=== PATIENT | female | born 1995 | race Caucasian/White ===

== ENCOUNTER → 2018-06-16 | Outpatient (CLI) | payer OTHER | END | disposition home or self-care (01) | LOC: LAB SHORT 18:04 → LAB 18:04 | DX: L08.9 Local infection of the skin and subcutaneous tissue, unspecified (principal) | CPT/HCPCS: 87070; 87205 ==

== ENCOUNTER → 2019-02-24 | Outpatient (CLI) | payer OTHER ==
[~2019-02-24] MED LIST: ALBU90OI INH; ALLEGRA ALLERG180 MG PO; MONO-LINYAH1 EACH PO; SERT100 PO
[2019-02-24 18:26] LABS: Candida species (DNA Probe) Negative (NEGATIVE); G. vaginalis (DNA Probe) Negative (NEGATIVE); T. vaginalis (DNA Probe) Negative (NEGATIVE)
== END ==
LOC: LAB SHORT 16:00 → LAB 16:00
PROVIDERS: Nurse Practitioner
DX: R10.2 Pelvic and perineal pain (principal)
CPT/HCPCS: 87480; 87510; 87660

== ENCOUNTER 2019-12-17 09:55 | Emergency (ER) | payer OTHER ==
[~2019-12-17] VITALS: Ht 160 cm; Wt 68.0 kg
[2019-12-17 11:34] LABS: BASOPHILS ABSOLUTE AUTO 0.08 K/mm3 (0.00-0.23); BASOPHILS PERCENT AUTO 1 % (0-2); EOSINOPHILS ABSOLUTE AUTO 0.28 K/mm3 (0.00-0.68); EOSINOPHILS PERCENT AUTO 3 % (0-6); Hemoglobin 13.8 g/dL (11.5-16.0); IMMATURE GRAN ABSOLUTE AUTO 0.03 K/mm3 (0.00-0.10); IMMATURE GRAN PERCENT AUTO 0 % (0-1); LYMPHOCYTES ABSOLUTE AUTO 2.07 K/mm3 (0.84-5.20); LYMPHOCYTES PERCENT AUTO 22 % (21-46); MONOCYTES ABSOLUTE AUTO 0.76 K/mm3 (0.16-1.47); MONOCYTES PERCENT AUTO 8 % (4-13); Mean Corpuscular HGB 29.2 pg (26.0-34.0); Mean Corpuscular HGB Conc 32.9 g/dL (31.5-36.5); Mean Corpuscular Volume 89 fL (80-100); Mean Platelet Volume 10.4 fL (9.1-12.4); NEUTROPHILS PERCENT AUTO 66 % (41-73); Platelet Count 272 K/mm3 (150-400); RDW Coefficient Variation 12.1 % (11.7-14.2); RDW Standard Deviation 39.9 fL (35.1-46.3); Red Blood Cell Count 4.72 M/mm3 (3.80-5.20); White Blood Cell Count 9.52 K/mm3 (4.00-11.30)
[2019-12-17 11:58] LABS: Alanine Aminotransfer (ALT/SGP 22 U/L (12-78); Albumin, Blood 3.5 g/dL (3.4-5.0); Albumin/Globulin Ratio 0.9 (0.8-1.8); Alk Phos 99 U/L (50-136); Anion Gap 5 mmol/L (6-16); Aspartate Aminotrans (AST/SGOT 19 U/L (12-37); Bilirubin, Total 0.4 mg/dL (0.1-1.0); Blood Urea Nitrogen 6 mg/dL (8-24); Bun/Creatinine Ratio 12.2 (12.0-20.0); CO2, Blood 29 mmol/L (21-32); Calcium, Blood 9.3 mg/dL (8.5-10.1); Chloride, Blood 107 mmol/L (98-108); Creatinine, Blood 0.49 mg/dL (0.40-1.00); Globulin, Blood 3.7 g/dL (2.2-4.0); Glomerular Filtration Rate >60 (60-); Glucose, Blood 81 mg/dL (70-99); Potassium, Blood 3.7 mmol/L (3.5-5.5); Sodium, Blood 141 mmol/L (136-145); Total Protein, Blood 7.2 g/dL (6.4-8.2)
[2019-12-17 13:26] LABS: U Amphetamine Screen Not Detected; U Barbituate Screen Not Detected; U Methamphetamine Screen Not Detected
[2019-12-17 13:27] LABS: U Benzodiazapine Screen Not Detected; U Buprenorphine Screen Not Detected; U Cannabinoids Screen Not Detected; U Cocaine Screen Not Detected; U Methadone Screen Not Detected; U Opiates Screen Not Detected; U Oxycodone Screen Not Detected; U Phencyclidine Screen Not Detected; U Propoxyphene Screen Not Detected
[2019-12-17 13:34] LABS: Free Thyroxine 1.29 ng/dL (0.70-1.60); Thyroid Stimulating Hormone 1.28 uIU/mL (0.360-4.800)
[2019-12-17 15:32] LABS: International Normalized Ratio 1.05; Prothrombin Time Results 11.2 Sec (9.7-11.5)
== END 2019-12-17 17:23 | disposition short-term general hospital (02) ==
LOC: ER 09:55
PROVIDERS: Physician Assistant
DX: I63.9 Cerebral infarction, unspecified (principal); H53.8 Other visual disturbances; Z20.828 Contact with and (suspected) exposure to other viral communicable diseases; F32.9 Major depressive disorder, single episode, unspecified; Z88.5 Allergy status to narcotic agent; Z91.02 Food additives allergy status; Z79.899 Other long term (current) drug therapy
CPT/HCPCS: 36415; 70450; 70551; 80053; 81000; 81025; 84439; 84443; 85025; 85610; 99284-25; U0004

== ENCOUNTER → 2021-03-26 | Outpatient (CLI) | payer OTHER | END | disposition home or self-care (01) | LOC: LAB SHORT 16:06 → LAB 16:06 | DX: N39.0 Urinary tract infection, site not specified (principal) | CPT/HCPCS: 87086 ==

== ENCOUNTER → 2021-07-16 | Outpatient (CLI) | payer OTHER | END | disposition home or self-care (01) | LOC: LAB SHORT 17:06 | DX: R30.9 Painful micturition, unspecified (principal) | CPT/HCPCS: 87086 ==

== ENCOUNTER → 2021-08-01 | Outpatient (CLI) | payer OTHER ==
[2021-08-01 11:31] LABS: Source, Urine Clean Catch
[2021-08-01 15:12] LABS: Appearance, Urine Clear (Clear); Bilirubin, Urine Neg (Neg); Blood, Urine Neg (Neg); Color, Urine Yellow (P-Yellow); Glucose Qualitative, Urine Neg (Neg); Ketones, Urine Neg (Neg); Leukocyte Esterase, Urine 1+ (Neg); Nitrite, Urine Neg (Neg); Protein, Urine Neg (Neg); Specific Gravity, Urine 1.015 (1.003-1.022); Urobilinogen, Urine NORM (Normal)
[2021-08-01 15:26] LABS: Bacteria Mod /hpf; Red Blood Cells, Urine 0-2 /hpf (0-2); Squamous Epithelial Cells Few /hpf (Few)
== END ==
LOC: LAB SHORT 11:30 → LAB 11:30
PROVIDERS: Registered Nurse Community Health
DX: O09.91 Supervision of high risk pregnancy, unspecified, first trimester (principal)
CPT/HCPCS: 81001; 87086

== ENCOUNTER → 2021-08-22 | Outpatient (CLI) | payer OTHER ==
[~2021-08-22] MED LIST changes: +ADALAT CC30 M1 PO; +CETI5 PO; +ENOX30I; +Hydroxyzine HCl25 MG PO; +PRENATAL TABLE1 EAC9; +Zofran4 MG PO
[2021-08-24 01:06] LABS: CHLAMYDIA TRACHOMATIS, NAA Negative (Negative)
== END | disposition home or self-care (01) ==
LOC: LAB SHORT 14:00 → LAB 14:00
PROVIDERS: Family Medicine
DX: Z34.90 Encounter for supervision of normal pregnancy, unspecified, unspecified trimester (principal)
CPT/HCPCS: 87491; 87591

== ENCOUNTER → 2021-09-02 | Outpatient (CLI) | payer OTHER ==
[~2021-09-02] MED LIST changes: -ADALAT CC30 M1 PO; -CETI5 PO; -ENOX30I; -Hydroxyzine HCl25 MG PO; -PRENATAL TABLE1 EAC9; -Zofran4 MG PO
[2021-09-02 15:47] LABS: BASOPHILS ABSOLUTE AUTO 0.04 K/mm3 (0.00-0.23); BASOPHILS PERCENT AUTO 1 % (0-2); EOSINOPHILS ABSOLUTE AUTO 0.11 K/mm3 (0.00-0.68); EOSINOPHILS PERCENT AUTO 1 % (0-6); Hematocrit 39.4 % (33.0-51.0); Hemoglobin 13.4 g/dL (11.5-16.0); IMMATURE GRAN ABSOLUTE AUTO 0.03 K/mm3 (0.00-0.10); IMMATURE GRAN PERCENT AUTO 0 % (0-1); LYMPHOCYTES ABSOLUTE AUTO 1.93 K/mm3 (0.84-5.20); LYMPHOCYTES PERCENT AUTO 24 % (21-46); MONOCYTES ABSOLUTE AUTO 0.61 K/mm3 (0.16-1.47); MONOCYTES PERCENT AUTO 8 % (4-13); Mean Corpuscular HGB 29.3 pg (26.0-34.0); Mean Corpuscular Volume 86 fL (80-100); Mean Platelet Volume 10.4 fL (9.1-12.4); NEUTROPHILS ABSOLUTE AUTO 5.37 K/mm3 (1.96-9.15); NEUTROPHILS PERCENT AUTO 66 % (41-73); Platelet Count 270 K/mm3 (150-400); RDW Coefficient Variation 12.9 % (11.7-14.2); RDW Standard Deviation 40.2 fL (35.1-46.3); Red Blood Cell Count 4.57 M/mm3 (3.80-5.20); White Blood Cell Count 8.09 K/mm3 (4.00-11.30)
[2021-09-02 15:50] LABS: Albumin, Blood 3.4 g/dL (3.4-5.0); Bilirubin, Total 0.3 mg/dL (0.1-1.0); Bun/Creatinine Ratio 18.1 (12.0-20.0); Calcium, Blood 9.3 mg/dL (8.5-10.1); Creatinine, Blood 0.39 mg/dL (0.40-1.00); Globulin, Blood 3.5 g/dL (2.2-4.0); Potassium, Blood 3.4 mmol/L (3.5-5.5); Total Protein, Blood 6.9 g/dL (6.4-8.2)
== END | disposition home or self-care (01) ==
LOC: LAB SHORT 14:20 → LAB 14:20
PROVIDERS: Nurse Practitioner Family
DX: R11.0 Nausea (principal); R53.83 Other fatigue
CPT/HCPCS: 80053; 85025

== ENCOUNTER 2021-09-29 04:01 | Day surgery (SDC) | payer OTHER ==
[2021-09-29] MEDS ORDERED: ENOX30I (14:05)
[2021-09-29] MEDS ORDERED: Hydroxyzine HCl25 MG PO (14:06)
[2021-09-29] MEDS ORDERED: Zofran4 MG PO (14:07)
[2021-09-29] MEDS ORDERED: PRENATAL TABLE1 EAC9 (14:07)
[2021-09-29] MEDS ORDERED: CETI5 PO (14:08)
--- NOTE | 2021-09-29 16:23 | NUR ---
IVF STOPPED AND PT DISCHARGED HOME BY LUIS BARNES RN
== END 2021-09-29 15:15 | disposition home or self-care (01) ==
LOC: ATC 04:01
DX: O21.9 Vomiting of pregnancy, unspecified (principal); Z3A.00 Weeks of gestation of pregnancy not specified; Z79.899 Other long term (current) drug therapy
CPT/HCPCS: 96361; 96374; J2405; J7120

== ENCOUNTER 2021-10-01 00:46 | Day surgery (SDC) | payer OTHER ==
[~2021-10-01 00:46] MED LIST changes: +CETI5 PO; +ENOX30I; +Hydroxyzine HCl25 MG PO; +PRENATAL TABLE1 EAC9; +Zofran4 MG PO
== END 2021-10-01 16:28 | disposition home or self-care (01) ==
LOC: ATC 00:46
DX: R11.2 Nausea with vomiting, unspecified (principal)
CPT/HCPCS: 96361; 96374; C1751; J2001; J2405; J7120

== ENCOUNTER 2021-10-03 00:14 | Day surgery (SDC) | payer OTHER | END 2021-10-03 22:39 | disposition home or self-care (01) | LOC: ATC 00:14 | DX: O21.9 Vomiting of pregnancy, unspecified (principal); Z3A.00 Weeks of gestation of pregnancy not specified; Z86.73 Personal history of transient ischemic attack (TIA), and cerebral infarction without residual deficits | CPT/HCPCS: 96361; 96374; J2405; J7120 ==

== ENCOUNTER 2021-10-06 00:07 | Day surgery (SDC) | payer OTHER | END 2021-10-06 16:25 | disposition home or self-care (01) | LOC: ATC 00:07 | DX: O21.9 Vomiting of pregnancy, unspecified (principal); Z88.5 Allergy status to narcotic agent; Z91.018 Allergy to other foods; Z3A.00 Weeks of gestation of pregnancy not specified | CPT/HCPCS: 96361; 96374; J2405; J7120 ==

== ENCOUNTER 2021-10-08 01:39 | Day surgery (SDC) | payer OTHER | END 2021-10-08 15:09 | disposition home or self-care (01) | LOC: ATC 01:39 | DX: R11.2 Nausea with vomiting, unspecified (principal); I10 Essential (primary) hypertension; J45.909 Unspecified asthma, uncomplicated; E66.9 Obesity, unspecified | CPT/HCPCS: 96361; 96374; J2405; J7120 ==

== ENCOUNTER 2021-10-17 00:47 | Day surgery (SDC) | payer OTHER ==
--- NOTE | 2021-10-17 17:31 | NUR ---
PT DID NOT SHOW FOR HER APPOINTMENT IN THE [facility] TODAY.
== END 2021-10-17 22:55 | disposition home or self-care (01) ==
LOC: ATC 00:47
DX: O21.9 Vomiting of pregnancy, unspecified (principal); Z3A.00 Weeks of gestation of pregnancy not specified; Z88.5 Allergy status to narcotic agent; Z79.899 Other long term (current) drug therapy
CPT/HCPCS: J2405; J7120

== ENCOUNTER 2021-10-22 06:23 | Day surgery (SDC) | payer OTHER ==
[2021-10-22] MEDS ORDERED: ADALAT CC30 M1 PO (14:28)
== END 2021-10-22 14:46 | disposition home or self-care (01) ==
LOC: ATC 06:23
DX: O21.9 Vomiting of pregnancy, unspecified (principal); Z3A.00 Weeks of gestation of pregnancy not specified; Z88.5 Allergy status to narcotic agent; Z79.899 Other long term (current) drug therapy
CPT/HCPCS: 96361; 96374; J2405; J7120

== ENCOUNTER 2021-10-29 14:44 | Day surgery (SDC) | payer OTHER ==
[~2021-10-29 14:44] MED LIST changes: +ADALAT CC30 M1 PO
== END 2021-10-29 14:48 | disposition home or self-care (01) ==
LOC: ATC 14:44
DX: O21.9 Vomiting of pregnancy, unspecified (principal); Z3A.00 Weeks of gestation of pregnancy not specified; E78.2 Mixed hyperlipidemia; Z88.5 Allergy status to narcotic agent; Z79.899 Other long term (current) drug therapy
CPT/HCPCS: 99211

== ENCOUNTER → 2021-12-10 | Outpatient (CLI) | payer OTHER ==
[~2021-12-10] MED LIST changes: +METO50ER PO; +SERT50 PO
[2021-12-10 15:02] LABS: BASOPHILS ABSOLUTE AUTO 0.05 K/mm3 (0.00-0.23); BASOPHILS PERCENT AUTO 1 % (0-2); EOSINOPHILS ABSOLUTE AUTO 0.13 K/mm3 (0.00-0.68); EOSINOPHILS PERCENT AUTO 1 % (0-6); Hematocrit 37.4 % (33.0-51.0); IMMATURE GRAN ABSOLUTE AUTO 0.05 K/mm3 (0.00-0.10); IMMATURE GRAN PERCENT AUTO 1 % (0-1); LYMPHOCYTES PERCENT AUTO 23 % (21-46); MONOCYTES ABSOLUTE AUTO 0.63 K/mm3 (0.16-1.47); MONOCYTES PERCENT AUTO 6 % (4-13); Mean Corpuscular HGB 30.5 pg (26.0-34.0); Mean Corpuscular HGB Conc 34.8 g/dL (31.5-36.5); Mean Corpuscular Volume 88 fL (80-100); Mean Platelet Volume 10.8 fL (9.1-12.4); NEUTROPHILS ABSOLUTE AUTO 7.07 K/mm3 (1.96-9.15); NEUTROPHILS PERCENT AUTO 69 % (41-73); Platelet Count 282 K/mm3 (150-400); RDW Coefficient Variation 13.2 % (11.7-14.2); RDW Standard Deviation 42.1 fL (35.1-46.3); Red Blood Cell Count 4.26 M/mm3 (3.80-5.20); White Blood Cell Count 10.23 K/mm3 (4.00-11.30)
== END ==
LOC: LAB SHORT 11:10 → LAB 11:10
PROVIDERS: Family Medicine
DX: Z34.90 Encounter for supervision of normal pregnancy, unspecified, unspecified trimester (principal)
CPT/HCPCS: 82950; 85025

== ENCOUNTER 2021-12-12 10:05 | Inpatient (IN) | payer OTHER ==
[~2021-12-12] VITALS: Ht 160 cm; Wt 91.2 kg
[~2021-12-12 10:05] MED LIST changes: -METO50ER PO; -SERT50 PO
--- NOTE | 2021-12-12 10:05 | NUR ---
PT HERE FOR TWIN DEMISE INDUCTION WITH CYTOTEC, ONE BABY PASSED AT 16 WEEKS THE SECOND BABY PASSED THIS WEEK PER DR CASTRO FROM [place]. THE SECOND BABY IS 25 WEEKS BY [facility] AND IS ABOUT THE SIZE OF 19WEEKS.
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
[2021-12-12] MEDS ORDERED: SERT50 PO (11:07)
--- NOTE | 2021-12-12 12:32 | NUR ---
PT LAST TOOK VIAGRA YESTERDAY AT 0600, MORE THAN 24 HOURS AGO, OK TO START FIRST LINE OF DEFENSE WITH LABETALOL IF NEEDED. ONLY START THE FIRST LINE OF DEFENSE IF NEED PER MEETING BLOOD PRESSURE PARAMETER, PT LAST TOOK LOVENOX 30 SQ YESTERDAY MORNING, STOPPED TAKING AFTER THAT, HASNT HAD IT FOR 24 HOURS. SHE DID TAKE HER NIFEDIPINE 60XL THIS MORNING.
--- NOTE | 2021-12-12 12:52 | NUR ---
CONSULT ORDERED THRU RIDGE GARZA RN IN OR TODAY AT 1015 FOR ANESTHESIA CONSULT FOR PT HISTORY OF ANESETHIA NOT WORKING DURING HER COLONOSCOPY AND HAVING TO DO DIFFERENT ANESTHESIA. SHE REPORTS SOMEONE WILL BE DOWN TODAY TO SEE PT.
--- NOTE | 2021-12-12 12:56 | NUR ---
DR EWING IN ROOM WITH DR CORNELIUS TALKING TO PT
[2021-12-12 13:13] LABS: BASOPHILS ABSOLUTE AUTO 0.04 K/mm3 (0.00-0.23); BASOPHILS PERCENT AUTO 0 % (0-2); EOSINOPHILS ABSOLUTE AUTO 0.12 K/mm3 (0.00-0.68); EOSINOPHILS PERCENT AUTO 1 % (0-6); Hematocrit 40.7 % (33.0-51.0); Hemoglobin 13.9 g/dL (11.5-16.0); IMMATURE GRAN ABSOLUTE AUTO 0.06 K/mm3 (0.00-0.10); IMMATURE GRAN PERCENT AUTO 1 % (0-1); LYMPHOCYTES ABSOLUTE AUTO 2.37 K/mm3 (0.84-5.20); LYMPHOCYTES PERCENT AUTO 21 % (21-46); MONOCYTES ABSOLUTE AUTO 0.83 K/mm3 (0.16-1.47); MONOCYTES PERCENT AUTO 7 % (4-13); Mean Corpuscular HGB 30.2 pg (26.0-34.0); Mean Corpuscular HGB Conc 34.2 g/dL (31.5-36.5); Mean Corpuscular Volume 88 fL (80-100); Mean Platelet Volume 10.9 fL (9.1-12.4); NEUTROPHILS ABSOLUTE AUTO 8.16 K/mm3 (1.96-9.15); NEUTROPHILS PERCENT AUTO 71 % (41-73); Platelet Count 310 K/mm3 (150-400); RDW Coefficient Variation 13.3 % (11.7-14.2); RDW Standard Deviation 42.8 fL (35.1-46.3); Red Blood Cell Count 4.61 M/mm3 (3.80-5.20); White Blood Cell Count 11.58 K/mm3 (4.00-11.30)
[2021-12-12 13:18] LABS: Albumin/Globulin Ratio 0.8 (0.8-1.8); Bilirubin, Total 0.3 mg/dL (0.1-1.0); Calcium, Blood 9.9 mg/dL (8.5-10.1); Creatinine, Blood 0.5 mg/dL (0.40-1.00); Globulin, Blood 3.7 g/dL (2.2-4.0); Potassium, Blood 4.2 mmol/L (3.5-5.5); Total Protein, Blood 6.7 g/dL (6.4-8.2)
[2021-12-12 13:32] LABS: Protein/Creat Ratio, Ur Random 1.5
--- NOTE | 2021-12-12 16:24 | NUR ---
PT IS GETTING MORE CRAMPY, SHE STOPS TALKING AND BREATHS FOR A SECOND. PLAN TO TRY JACUZZI TUB WHEN PT ABLE TO GET UP AFTER 1 HR AFTER CYTOTEC GIVEN. WENT OVER DEMISE FOLDER, THEY PLAN TO NAME BABIES WHEN AFTER THERE ARE BORN AFTER THE ROSALVA CULTURE. TALKED ABOUT GETTING PRINTS AND MOLDS IF ABLE FROM BOTH BABIES, TALKED ABOUT NOT SURE PRINTS/MOLDS ON BABY B SINCE HAS BEEN FOR 8 WEEKS. TALKED ABOUT, THE CUDDLE COT, AUTOSPY, CHROMOSONAL STUDIES, THEY DECLINE GENETIC TESTING, AND CHROMOSOMAL STUDIES AT THIS TIME
--- NOTE | 2021-12-12 16:45 | NUR ---
PT GETTING IN JANNETTE TUB
--- NOTE | 2021-12-12 20:19 | NUR ---
BLOOD PRESSURE OF 204/72 IS INACCURATE RESULT DUE TO PT SHIVERING, REPEAT BP WITHIN NORMAL RANGE
--- NOTE | 2021-12-13 07:23 | NUR ---
GETTING PT UP TO BATHROOM, ENCOURAGED USING GRAVITY TO HELP GET PLACENTA OUT AND OTHER BABY. ENCOURAGED USING BATHROOM, HADNT BEEN UP SINCE THE DELIVERY OF BABY B. PT REPORTS FELT SOMETHING CAME OUT. COULD SEE PLACENTA IN THE HAT AFTER PT UP TO WASH HANDS COULD SEE THAT IT LOOKED LIKE BABY A INTACT IN BAG. TOOK WITH PLACENTA TO DR PARSONS. CALLING TIME OF FOR BABY [address] EWING RUPTURED BABY TO ASSESS BABY A AND THERE WAS NO SMELL. DR PARSONS TALKED TO PATHOLOGY ABOUT WHAT SHE NEEDED FOR THE PLACENTA SLIDE FOR [facility].
[2021-12-13 09:30] LABS: Hematocrit 37.3 % (33.0-51.0); Hemoglobin 13.1 g/dL (11.5-16.0); Mean Corpuscular HGB Conc 35.1 g/dL (31.5-36.5); Mean Corpuscular Volume 88 fL (80-100); Mean Platelet Volume 9.8 fL (9.1-12.4); Platelet Count 233 K/mm3 (150-400); RDW Coefficient Variation 13.3 % (11.7-14.2); RDW Standard Deviation 43.2 fL (35.1-46.3); Red Blood Cell Count 4.22 M/mm3 (3.80-5.20); White Blood Cell Count 12.61 K/mm3 (4.00-11.30)
[2021-12-13 09:48] LABS: International Normalized Ratio 0.98; Prothrombin Time Results 10.3 Sec (9.7-11.5)
[2021-12-13 09:53] LABS: Albumin, Blood 2.6 g/dL (3.4-5.0); Albumin/Globulin Ratio 0.8 (0.8-1.8); Bilirubin, Total 0.2 mg/dL (0.1-1.0); Bun/Creatinine Ratio 16.6 (12.0-20.0); Calcium, Blood 8.1 mg/dL (8.5-10.1); Creatinine, Blood 0.48 mg/dL (0.40-1.00); Globulin, Blood 3.4 g/dL (2.2-4.0); Potassium, Blood 3.6 mmol/L (3.5-5.5)
[2021-12-13 09:55] LABS: BASOPHILS PERCENT MAN 0 % (0-2); EOSINOPHILS PERCENT MAN 0 % (0-6); LYMPHOCYTES PERCENT MAN 8 % (21-46); MONOCYTES ABSOLUTE MAN 0.25 K/mm3 (0.16-1.47); MONOCYTES PERCENT MAN 2 % (4-13); NEUTROPHILS ABSOLUTE MAN 11.34 K/mm3 (1.96-9.15); SEG NEUTROPHILS PERCENT MAN 90 % (41-73); TOTAL CELLS COUNTED 100
[2021-12-13] MEDS ORDERED: METO50ER PO (16:00)
--- NOTE | 2021-12-13 18:40 | NUR ---
DC HOME, FIRST BP BEFORE LEAVING WAS A LITTLE HIGH, BUT PT WAS IN A SWEATSHIRT AND HAD JUST BEEN GIVEN [employer]INS [employer], REPEATED BP 10 MINUTES LATER AND BP WAS DECREASING. PT IS AWARE TO GO HOME AND TAKE IT EASY, SHE IS AWARE THE MORE SHE IS UP THE HIGHER HER BLOOD PRESSURE IS. SHE PLANS TO TAKE IT EASY AND HAS DR STARK NUMBER TO CALL WITH PROBLEMS, BABYS WILL GO TO [place],
--- NOTE | 2021-12-14 10:22 | NUR ---
[employer] HERE TO BUSINESS INTERN BABIES, HYACINTH GIVEN PARENTS PHONE NUMBER AND THAT THEY NEED TO CALL THEM BEFORE THEY DO ANYTHING WITH THE BABY'S AND BABYS NEED TO STAY IN THE [place]
[2021-12-15 23:09] LABS: DILUTE PROTHROMBIN TIME(DPT) 42.8 sec (0.0-47.6); DPT CONFIRM RATIO 1.05 Ratio (0.00-1.34); DRVVT CONFIRM 1.4 ratio (0.8-1.2); LUPUS REFLEX INTERPRETATION Comment: (.); PTT-LA 45.1 sec (0.0-51.9); THROMBIN TIME 17.6 sec (0.0-23.0)
[2021-12-19 11:10] LABS: ANTI-PS/PT ABS IGG <10 Units (.); ANTI-PS/PT ABS IGM <10 Units (.); APTT 30.8 sec (.); DRVVT SCREEN SECONDS 40.3 sec (.); HEXAGONAL PHOSPHOLIPID NEUTRAL 1 sec (.); PROTHROMBIN TIME 10.7 sec (.); THROMBIN TIME 15.7 sec (.)
== END 2021-12-13 18:35 | disposition home or self-care (01) | DRG 806 ==
LOC: OBS 10:05 → BC 10:34
PROVIDERS: Family Medicine; ADMIT Family Medicine
PROC: 10E0XZZ Delivery of Products of Conception, External Approach (ICD-10-PCS; principal; 2021-12-12)
PROC: 3E0DXGC Introduction of Other Therapeutic Substance into Mouth and Pharynx, External Approach (ICD-10-PCS; 2021-12-12)
DX: O36.4XX2 Maternal care for intrauterine death, fetus 2 (principal); D68.51 Activated protein C resistance; Z37.0 Single live birth; O10.92 Unspecified pre-existing hypertension complicating childbirth; Q21.12 Patent foramen ovale; O99.12 Other diseases of the blood and blood-forming organs and certain disorders involving the immune mechanism complicating childbirth; O30.043 Twin pregnancy, dichorionic/diamniotic, third trimester; O36.4XX1 Maternal care for intrauterine death, fetus 1; O30.042 Twin pregnancy, dichorionic/diamniotic, second trimester; Z37.4 Twins, both stillborn; Z88.8 Allergy status to other drugs, medicaments and biological substances; O75.89 Other specified complications of labor and delivery; Z3A.25 25 weeks gestation of pregnancy
CPT/HCPCS: 36415; 80053; 82570; 84156; 85007; 85025; 85027; 85610; 85611; 85613; 85670; 85705; 85730; 85732; 86146; 86147; 86148; 86777; 86778; 86850; 86900; 86901; 88307; A9270; J0290; J0696; J1580; J1885; J2270; J2405; J2550; J2590; J3010; J7120

== ENCOUNTER → 2022-12-03 | Outpatient (CLI) | payer BC ==
[~2022-12-03] MED LIST changes: +METO50ER PO; +SERT50 PO
[2022-12-10 00:07] LABS: HPV APTIMA Negative (Negative)
== END | disposition home or self-care (01) ==
LOC: LAB 13:32 → LAB SHORT 13:32
PROVIDERS: Family Medicine
DX: Z12.4 Encounter for screening for malignant neoplasm of cervix (principal)
CPT/HCPCS: G0145

== ENCOUNTER → 2023-01-14 | Outpatient (CLI) | payer BC ==
[2023-01-16 19:02] LABS: APTIMA MEDIA TYPE Urine; C. TRACHOMATIS BY TMA Negative (Negative); N. GONORRHOEAE BY TMA Negative (Negative); SPECIMEN SOURCE Urine
== END | disposition home or self-care (01) ==
LOC: LAB 13:53 → LAB SHORT 13:53
PROVIDERS: Family Medicine
DX: O09.91 Supervision of high risk pregnancy, unspecified, first trimester (principal)
CPT/HCPCS: 87491; 87591

== ENCOUNTER 2023-02-04 22:52 | Emergency (ER) | payer BC ==
[~2023-02-04] VITALS: Ht 160 cm; Wt 81.7 kg
[2023-02-04 23:09] VITALS: BP 118/76
[2023-02-04] MEDS ORDERED: ASPI81CH PO (23:28)
[2023-02-04] MEDS ORDERED: ENOX80I SC (23:28)
[2023-02-04 23:46] LABS: BASOPHILS ABSOLUTE AUTO 0.05 K/mm3 (0.00-0.23); BASOPHILS PERCENT AUTO 1 % (0-2); EOSINOPHILS PERCENT AUTO 2 % (0-6); Hematocrit 36.8 % (33.0-51.0); Hemoglobin 12.6 g/dL (11.5-16.0); IMMATURE GRAN ABSOLUTE AUTO 0.05 K/mm3 (0.00-0.10); IMMATURE GRAN PERCENT AUTO 1 % (0-1); LYMPHOCYTES ABSOLUTE AUTO 2.45 K/mm3 (0.84-5.20); LYMPHOCYTES PERCENT AUTO 28 % (21-46); MONOCYTES ABSOLUTE AUTO 0.61 K/mm3 (0.16-1.47); MONOCYTES PERCENT AUTO 7 % (4-13); Mean Corpuscular HGB 29.7 pg (26.0-34.0); Mean Corpuscular HGB Conc 34.2 g/dL (31.5-36.5); Mean Corpuscular Volume 87 fL (80-100); NEUTROPHILS ABSOLUTE AUTO 5.52 K/mm3 (1.96-9.15); NEUTROPHILS PERCENT AUTO 62 % (41-73); Platelet Count 258 K/mm3 (150-400); RDW Coefficient Variation 12.9 % (11.7-14.2); RDW Standard Deviation 40.4 fL (35.1-46.3); Red Blood Cell Count 4.24 M/mm3 (3.80-5.20); White Blood Cell Count 8.88 K/mm3 (4.00-11.30)
[2023-02-05 00:48] LABS: Albumin, Blood 3.1 g/dL (3.4-5.0); Albumin/Globulin Ratio 0.9 (0.8-1.8); Bilirubin, Total 0.2 mg/dL (0.1-1.0); Bun/Creatinine Ratio 9.2 (12.0-20.0); Calcium, Blood 8.6 mg/dL (8.5-10.1); Creatinine, Blood 0.44 mg/dL (0.40-1.00); Globulin, Blood 3.5 g/dL (2.2-4.0); Potassium, Blood 3.7 mmol/L (3.5-5.5); Total Protein, Blood 6.6 g/dL (6.4-8.2)
[2023-02-05] MEDS ORDERED: ONDA4ODT MM (00:59)
== END 2023-02-05 01:59 | disposition home or self-care (01) ==
LOC: ER 22:52
PROVIDERS: Student in an Organized Health Care Education/Training Program
DX: O9A.212 Injury, poisoning and certain other consequences of external causes complicating pregnancy, second trimester (principal); O21.9 Vomiting of pregnancy, unspecified; T45.515A Adverse effect of anticoagulants, initial encounter; O10.012 Pre-existing essential hypertension complicating pregnancy, second trimester; O99.352 Diseases of the nervous system complicating pregnancy, second trimester; G43.909 Migraine, unspecified, not intractable, without status migrainosus; Z3A.17 17 weeks gestation of pregnancy; Z79.899 Other long term (current) drug therapy; Z88.5 Allergy status to narcotic agent; Z88.6 Allergy status to analgesic agent; Z91.018 Allergy to other foods
CPT/HCPCS: 80053; 83735; 84702; 85025; 96361; 96374; 99284-25; A9270; J2405; J7030

== ENCOUNTER → 2023-03-08 | Outpatient (CLI) | payer BC ==
[~2023-03-08] MED LIST changes: +ASPI81CH PO; +ENOX80I SC; +ONDA4ODT MM
== END | disposition home or self-care (01) ==
LOC: LAB EV 14:17 → LAB SHORT 14:17
DX: R31.9 Hematuria, unspecified (principal)
CPT/HCPCS: 87086

== ENCOUNTER → 2023-04-15 | Outpatient (CLI) | payer BC ==
[2023-04-15 14:45] LABS: BASOPHILS ABSOLUTE AUTO 0.07 K/mm3 (0.00-0.23); BASOPHILS PERCENT AUTO 1 % (0-2); EOSINOPHILS ABSOLUTE AUTO 0.16 K/mm3 (0.00-0.68); EOSINOPHILS PERCENT AUTO 2 % (0-6); Hematocrit 36.5 % (33.0-51.0); Hemoglobin 12.4 g/dL (11.5-16.0); IMMATURE GRAN ABSOLUTE AUTO 0.42 K/mm3 (0.00-0.10); IMMATURE GRAN PERCENT AUTO 4 % (0-1); LYMPHOCYTES ABSOLUTE AUTO 2.15 K/mm3 (0.84-5.20); LYMPHOCYTES PERCENT AUTO 20 % (21-46); MONOCYTES ABSOLUTE AUTO 0.82 K/mm3 (0.16-1.47); MONOCYTES PERCENT AUTO 8 % (4-13); Mean Corpuscular HGB 30.2 pg (26.0-34.0); Mean Corpuscular Volume 89 fL (80-100); Mean Platelet Volume 10.7 fL (9.1-12.4); NEUTROPHILS ABSOLUTE AUTO 7.27 K/mm3 (1.96-9.15); NEUTROPHILS PERCENT AUTO 67 % (41-73); Platelet Count 267 K/mm3 (150-400); RDW Coefficient Variation 13.4 % (11.7-14.2); RDW Standard Deviation 43.7 fL (35.1-46.3); White Blood Cell Count 10.89 K/mm3 (4.00-11.30)
== END | disposition home or self-care (01) ==
LOC: LAB SHORT 14:13
PROVIDERS: Family Medicine
DX: O09.92 Supervision of high risk pregnancy, unspecified, second trimester (principal)
CPT/HCPCS: 82950; 85025

== ENCOUNTER → 2023-06-17 | Outpatient (CLI) | payer OTHER | LOC: LAB 13:21 → LAB SHORT 13:21 | DX: Z34.90 Encounter for supervision of normal pregnancy, unspecified, unspecified trimester (principal) | CPT/HCPCS: 87081; 87150 ==

== ENCOUNTER → 2023-09-06 | Outpatient (CLI) | payer OTHER, BC ==
[2023-09-06 16:06] LABS: Bacterial Vaginosis PCR Negative (NEGATIVE); Candida Group, PCR NOT DETECTED (NOT DETECT); Candida glabrata-krusei, PCR NOT DETECTED (NOT DETECT)
== END ==
LOC: LAB SHORT 13:33 → LAB 13:33
PROVIDERS: Family Medicine
DX: R10.2 Pelvic and perineal pain (principal)
CPT/HCPCS: 87481; 87661; 87801

== ENCOUNTER → 2024-10-17 | Outpatient (CLI) | payer OTHER ==
[2024-10-17 16:53] LABS: BASOPHILS ABSOLUTE AUTO 0.05 K/mm3 (0.00-0.23); BASOPHILS PERCENT AUTO 1 % (0-2); EOSINOPHILS ABSOLUTE AUTO 0.15 K/mm3 (0.00-0.68); EOSINOPHILS PERCENT AUTO 2 % (0-6); Hematocrit 42.0 % (33.0-51.0); Hemoglobin 13.7 g/dL (11.5-16.0); IMMATURE GRAN ABSOLUTE AUTO 0.02 K/mm3 (0.00-0.10); IMMATURE GRAN PERCENT AUTO 0 % (0-1); LYMPHOCYTES ABSOLUTE AUTO 2.18 K/mm3 (0.84-5.20); LYMPHOCYTES PERCENT AUTO 31 % (21-46); MONOCYTES ABSOLUTE AUTO 0.56 K/mm3 (0.16-1.47); MONOCYTES PERCENT AUTO 8 % (4-13); Mean Corpuscular HGB Conc 32.6 g/dL (31.5-36.5); Mean Corpuscular Volume 88 fL (80-100); NEUTROPHILS ABSOLUTE AUTO 4.14 K/mm3 (1.96-9.15); NEUTROPHILS PERCENT AUTO 58 % (41-73); NRBC ABSOLUTE 0.00 K/mm3 (0.00-0.02); NRBC Auto 0.0 /100 WBC (0.0-0.2); Platelet Count 271 K/mm3 (150-400); RDW Coefficient Variation 12.8 % (11.7-14.2); RDW Standard Deviation 41.0 fL (35.1-46.3)
[2024-10-17 18:59] LABS: Alanine Aminotransfer (ALT/SGP 27 U/L (12-78); Albumin, Blood 4.2 g/dL (3.4-5.0); Albumin/Globulin Ratio 1.2 (0.8-1.8); Anion Gap 8 mmol/L (3-11); Aspartate Aminotrans (AST/SGOT 12 U/L (12-37); Bilirubin, Total 0.2 mg/dL (0.1-1.0); Blood Urea Nitrogen 11 mg/dL (8-24); CHOL/HDL RATIO 4.0; CO2, Blood 27 mmol/L (21-32); Calcium, Blood 9.3 mg/dL (8.5-10.1); Chloride, Blood 106 mmol/L (98-108); Cholesterol 176 mg/dL (50-200); Creatinine, Blood 0.51 mg/dL (0.40-1.00); Globulin, Blood 3.4 g/dL (2.2-4.0); Glucose, Blood 98 mg/dL (70-99); HDL Cholesterol 44 mg/dL (>39); LDL/HDL RATIO 2.0; Low Density Lipoprotein Chol 90 mg/dL (0-110); Potassium, Blood 4.0 mmol/L (3.5-5.5); Sodium, Blood 137 mmol/L (136-145); Thyroid Stimulating Hormone 1.590 uIU/mL (0.360-4.800); Total Protein, Blood 7.6 g/dL (6.4-8.2); Triglycerides 210 mg/dL (30-140); Very Low Density Lipoprot Chol 42 mg/dL (6-28)
== END ==
LOC: LAB 13:50 → LAB SHORT 13:50
PROVIDERS: Student in an Organized Health Care Education/Training Program
DX: E66.811 Obesity, class 1 (principal); E66.09 Other obesity due to excess calories; Z68.30 Body mass index [BMI] 30.0-30.9, adult
CPT/HCPCS: 80053; 80061; 83036; 84443; 85025